=== PATIENT | male | born 1945 | race Caucasian/White ===

== ENCOUNTER 2022-10-26 09:40 | Outpatient (CLI) | payer OTHER, SELFPAY ==
--- NOTE | 2022-10-26 09:51 | USCV_ITS ---
AmayaJarrett franz Age: 77 Gender: M : 1945 Exam Date: 10/26/2022 10:03 Ordering Phys: Naomi Kiser MD Technologist: Suraj Rubio Exam Location: [facility] [place] Indication: screening HISTORY: Diameter (cm) AP x Transverse x Length Velocity (cm/s) Waveform Prox Aorta: 2.07 x 2.47 x 80.40 Mid Aorta: 2.71 x 2.04 x 99.80 Distal Aorta: 1.78 x 2.11 x 99.80 Right Iliac Prox: 1.02 x 1.13 x 58.00 Left Iliac Prox: 1.16 x 1.23 x 102.50 Stent Prox Landing x x Aneurysmal Sac Max x x Lt Lat Sac Dim Rt Lat Sac Dim Stent Dist Landing x x Right Iliac Stent x x Left Iliac Stent x x Right Renal Art Left Renal Art FINDINGS: Comparison: none available. Ectatic abdominal aorta with evidence of atherosclerotic plaque noted. Atherosclerotic plaque is noted in the abdominal aorta. No evidence of abdominal aortic aneurysm. Common iliac arteries are patent bilaterally. CONCLUSIONS No evidence of abdominal aortic or bilateral iliac aneurysm. Dr. Krista Costello DO (Electronically Signed) Final Date: 26 October 2022 12:29 S
== END 2022-10-26 09:41 | disposition home or self-care (01) ==
PROVIDERS: PCP Family Medicine; Visit Provider Family Medicine
DX: Z13.6 Encounter for screening for cardiovascular disorders (principal)
CPT/HCPCS: 76706

== ENCOUNTER → 2024-10-23 09:29 | Outpatient (BNVA) | payer OTHER, SELFPAY | PROVIDERS: PCP Family Medicine; Visit Provider Internal Medicine Cardiovascular Disease | DX: I49.9 Cardiac arrhythmia, unspecified (principal); I49.1 Atrial premature depolarization; I49.3 Ventricular premature depolarization; I47.29 Other ventricular tachycardia | CPT/HCPCS: 93242 ==

== ENCOUNTER → 2024-12-10 13:53 | Outpatient (BNVA) | payer OTHER, SELFPAY | PROVIDERS: PCP Family Medicine; Visit Provider Internal Medicine Cardiovascular Disease | DX: R07.9 Chest pain, unspecified (principal) | CPT/HCPCS: 93005 ==

== ENCOUNTER 2025-01-20 08:20 | Outpatient (CLI) | payer OTHER, SELFPAY ==
--- NOTE | 2025-01-20 | ECG_ITS ---
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 Interpretive Statements EXERCISE MIBI EXERCISE DATA: The patient was exercised by Aaron protocol. Baseline heart rate was 64 beats per minute. Baseline blood pressure was 159/72 millimeters of mercury. Maximal predicted heart rate was 142 beats per minute. Maximum heart rate achieved was 139, which was 97% of the maximum predicted heart rate. Maximum blood pressure was 220/69 millimeters of mercury. Total exercise time was 3 minutes and 41 seonds. Maximum METs achieved was 7.0. The reason for ending the test was maximal effort achieved. The patient complained of shortness of breath during the stress test, which then resolved at the end of the test. ELECTROCARDIOGRAM: BASELINE: Showed sinus rhythm, normal axis, no significant ST-T changes at the baseline noted. PVCs seen[] EXERCISE: At the peak exercise level, [] No significant ST-T changes suggestive of ischemia noted. [] RECOVERY: During the recovery period, heart rate dropped appropriately. No significant ST-T changes in the recovery suggestive of ischemia noted. [] CONCLUSION: 1. Exercise capacity is fair. 2. Heart rate response was appropriate 3. Blood pressure response was appropriate 4. Symptoms not suggestive of ischemia. 5. Electrocardiogram portion of the stress test was not suggestive of ischemia. 6. Nuclear scan will be documented separately. Electronically Signed On 01-31-2025 12:50:02 CDT by Yadiel Grayson M.D. [email or web address]
--- NOTE | 2025-01-20 08:39 | NMCV_ITS ---
NM kandace perf SPECT r/s* [id number] Jarrett Amaya Age: 79 Gender: M : 1945 Exam Date: 01/20/2025 09:13 Ordering Phys: Liberty Gómez MD ([email or web address]) Technologist: ISABELLA Lowry Exam Location: [facility] Indications: cp STRESS TEST Please see separate stress test report in [facility] for full findings IMAGE PROTOCOL Rest/Stress 1 Radiopharmaceutical Dose (mCi) Administration Site Administered by Rest: Tc-99m 10.5 IV ISABELLA Lowry Sestamibi Stress:Tc-99m 32.7 IV Swati Kearney, CASE OPERATOR Sestamibi Rest: 20-Jan-2025 60 Discovery 630 Stress: 20-Jan-2025 30 Discovery 630 Radiopharmaceutical was injected at 86% maximum heart rate. Images obtained in supine and prone position. SPECT RESULTS Technical Quality: Good Raw Data Analysis: Normal Image Corrections: No attenuation or motion correction applied Summed Stress Score: 1 Summed Rest Score: 2 Summed Difference Score: 0 PERFUSION FINDINGS There is a small sized area of fixed perfusion defect seen in inferolateral wall. 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 No significant ischemia seen. FUNCTIONAL RESULTS (calculated via Gated SPECT) Stress Image LV EF (%): 70 Stress EDV (mL):87 TID: 0.66 Stress ESV (mL):26 FUNCTIONAL FINDINGS: There is normal left ventricular systolic function. IMPRESSIONS 1. 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 No significant ischemia. 2. LV systolic function is normal. Yadiel Grayson MD (Electronically Signed) Final Date: 21 January 2025 12:06 S
[2025-01-20 08:40] VITALS: BMI 27.8
--- NOTE | 2025-01-20 09:15 | USCV_ITS ---
Jarrett Amaya Age: 79 Gender: M : 1945 Exam Date: 01/20/2025 08:54 Ordering Phys: Liberty Gómez MD ([email or web address]) Technologist: Exam Location: [facility] [place] Indication: cp BP: 125 / 75 HR: 68 Rhythm: Sinus Technical Quality: Adequate MEASUREMENTS (Male / Female) Normal Values 2D ECHO LV Diastolic Diameter PLAX 5.0 cm 4.2 - 5.9 / 3.9 - 5.3 cm IVS Diastolic Thickness 1.3 cm 0.6 - 1.0 / 0.6 - 0.9 cm IVS Systolic Thickness 2.0 cm LVPW Diastolic Thickness 1.4 cm 0.6 - 1.0 / 0.6 - 0.9 cm LVPW Systolic Thickness 2.0 cm LVOT Diameter 2.1 cm LV Ejection Fraction 2D Teich 76.0 % LV Ejection Fraction MOD 4C 71.1 % LV Ejection Fraction MOD 2C 73.2 % LV Ejection Fraction 2C AL 72.4 % LA Diameter 3.4 cm RA Systolic Volume 4C AL 29.9 ml RA Systolic Volume 4C MOD 28.3 ml LA Sys Volume AL 40.6 cm cubed LA Sys Volume Index AL 19.6 cm cubed/m squared Aorta at Sinotubular Diameter 3.2 cm IVC Diameter 1.9 cm M-MODE LA Ao Ratio MM 1.2 AV Cusp Separation MM 2.2 cm DOPPLER AV Peak Velocity 114.0 cm/s LVOT Peak Velocity 85.0 cm/s AV Area Cont Eq vti 2.8 cm squared AV Area Cont Eq pk 2.5 cm squared MV Peak Velocity 101.0 cm/s MV Area PHT 3.4 cm squared Mitral E to A Ratio 0.6 TV Peak Velocity 220.5 cm/s TR Peak Velocity 243.0 cm/s TR Peak Gradient 23.6 mmHg TV Peak E Velocity 78.0 cm/s PV Peak Velocity 130.0 cm/s FINDINGS Left Ventricle Normal left ventricular size, systolic function and wall thickness, with no regional wall motion abnormalities. Left ventricular ejection fraction is estimated at 60 %. Grade I/IV diastolic dysfunction (abnormal relaxation filling pattern), normal to mildly elevated filling pressures. Right Ventricle The right ventricle is normal in size and function. Right Atrium The right atrium is normal in size. Left Atrium The left atrium is normal in size. Mitral Valve Mildly thickened mitral valve. No mitral valve stenosis. Mild mitral valve regurgitation. Aortic Valve Mild aortic valve calcification. No aortic valve stenosis. Mild aortic valve regurgitation. Tricuspid Valve Structurally normal tricuspid valve without significant stenosis or regurgitation. Pulmonary artery systolic pressure is normal. Pulmonic Valve Structurally normal pulmonic valve without significant stenosis. There is no pulmonic regurgitation. Pericardium Normal pericardium without effusion. Aorta Normal ascending aorta dimension. IVC The inferior vena cava appears normal. CONCLUSIONS Normal left ventricular size, systolic function and wall thickness, with no regional wall motion abnormalities. Left ventricular ejection fraction is estimated at 60 %. Grade I/IV diastolic dysfunction (abnormal relaxation filling pattern), normal to mildly elevated filling pressures. Mildly thickened mitral valve. No mitral valve stenosis. Mild mitral valve regurgitation. Mild aortic valve calcification. No aortic valve stenosis. Mild aortic valve regurgitation. There is no pericardial effusion. Right atrial pressure is around 5 mm of mercury. Liberty Gómez MD (Electronically Signed) Final Date: 04 February 2025 20:25 S
[2025-01-20 10:14] VITALS: BP 169/74; PULSE 86
== END 2025-01-20 08:21 | disposition home or self-care (01) ==
LOC: RAD 08:23 → CDL 08:39
PROVIDERS: PCP Family Medicine; Visit Provider Internal Medicine Cardiovascular Disease
DX: R06.02 Shortness of breath (principal); I49.9 Cardiac arrhythmia, unspecified; R07.9 Chest pain, unspecified; R93.1 Abnormal findings on diagnostic imaging of heart and coronary circulation; I34.0 Nonrheumatic mitral (valve) insufficiency; I35.8 Other nonrheumatic aortic valve disorders; I35.1 Nonrheumatic aortic (valve) insufficiency
CPT/HCPCS: 36415; 78452; 93017; 93306; A9500

== ENCOUNTER → 2025-06-22 14:40 | Outpatient (BNVA) | payer OTHER, SELFPAY | PROVIDERS: PCP Family Medicine; Visit Provider Internal Medicine Cardiovascular Disease | DX: I49.3 Ventricular premature depolarization (principal); I10 Essential (primary) hypertension | CPT/HCPCS: 99213 ==